=== PATIENT | male | born 1960 | race Caucasian/White ===

== ENCOUNTER 2017-04-17 18:05 | Emergency (ER) | payer OTHER ==
[~2017-04-17] VITALS: Ht 188 cm; Wt 102.1 kg
[2017-04-17 18:10] VITALS: BP 171/106
[2017-04-17] MEDS ORDERED: PRINIVIL20 MG PO (18:41)
[2017-04-17] MEDS ORDERED: DIAZEPAM 10 MG10 M1 PO (18:41)
[2017-04-17] MEDS ORDERED: DOXYCYCLINE 10100 MG PO (18:41)
[2017-04-17] MEDS ORDERED: CARDIZEM CD180 MG PO (18:42)
== END 2017-04-17 18:50 | disposition home or self-care (01) ==
LOC: ER 18:05
DX: S81.801A Unspecified open wound, right lower leg, initial encounter (principal); V89.2XXA Person injured in unspecified motor-vehicle accident, traffic, initial encounter; Y93.89 Activity, other specified; Y92.89 Other specified places as the place of occurrence of the external cause; Y99.8 Other external cause status